=== PATIENT | male | born 1935 | race Caucasian/White ===

== ENCOUNTER 2016-07-04 13:17 | Outpatient (CLI) | payer MEDICARE | END 2016-07-04 23:59 | disposition home health service (06) | LOC: WOU 13:17 | PROVIDERS: ATTEND Surgery | PROC: 0JBH0ZZ Excision of Left Lower Arm Subcutaneous Tissue and Fascia, Open Approach (ICD-10-PCS; principal; 2016-07-04) | DX: S51.802A Unspecified open wound of left forearm, initial encounter (principal); W19.XXXA Unspecified fall, initial encounter; Y92.89 Other specified places as the place of occurrence of the external cause; Z74.09 Other reduced mobility; Z79.02 Long term (current) use of antithrombotics/antiplatelets; I48.91 Unspecified atrial fibrillation; Z86.73 Personal history of transient ischemic attack (TIA), and cerebral infarction without residual deficits; Z85.828 Personal history of other malignant neoplasm of skin; Z85.01 Personal history of malignant neoplasm of esophagus; G20 Parkinson's disease | CPT/HCPCS: 11042; 11045; A6402 ×2; J3490 ==

== ENCOUNTER 2016-07-11 14:25 | Outpatient (CLI) | payer MEDICARE | END 2016-07-11 23:59 | disposition home or self-care (01) | DX: S51.802A Unspecified open wound of left forearm, initial encounter (principal); X58.XXXA Exposure to other specified factors, initial encounter; Y92.89 Other specified places as the place of occurrence of the external cause; Z74.09 Other reduced mobility; Z86.73 Personal history of transient ischemic attack (TIA), and cerebral infarction without residual deficits; Z79.02 Long term (current) use of antithrombotics/antiplatelets; I48.91 Unspecified atrial fibrillation; Z79.899 Other long term (current) drug therapy | CPT/HCPCS: 11042; 11045; A6207; A6402 ==